=== PATIENT | female | born 1945 | race Caucasian/White ===

== ENCOUNTER → 2017-01-09 | Outpatient (CLI) | payer MEDICARE, OTHER ==
[~2017-01-09] MED LIST: ASPIRIN EC81 MG PO; DITROPAN-DPS5 MG PO; LASIX DPS20 MG PO; LEVAQUIN DPS500 MG PO; LORTAB LIQUID D15 ML PO; MOBIC15 MG PO; OMEPRAZOLE10 MG PO; SYNTHROID DPS0.1 MG PO; TYLENOL DPS325 MG PO; ZOCOR DPS20 MG PO
== END | disposition home or self-care (01) ==
LOC: RAD.S 01-08 15:00
PROC: 0W993ZZ Drainage of Right Pleural Cavity, Percutaneous Approach (ICD-10-PCS; principal; 2017-01-09)
DX: J90 Pleural effusion, not elsewhere classified (principal)

== ENCOUNTER 2017-01-21 15:15 | Inpatient (IN) | payer MEDICARE, OTHER ==
[~2017-01-21] VITALS: Ht 165.1 cm; Wt 89.8 kg
--- NOTE | ~2017-01-21 | ECH ---
Transthoracic Echocardiography Report (TTE) Demographics Patient Name DUNG SANCHEZ Date of Study 01/22/2017 Patient Number [id number] Visit Number [id number] Date of 1945 Room Number 532 Accession Number [id number] Gender Female Age 71 year(s) Referring Jessika Bonilla MD Sales Representative [facility] Frida Medrano Physician RDCS Physician Interpreting [place] Dusty Bennett MD Medical Technologist Prn Physician Supervising Ordering Physician Jessika Bonilla MD, MD/MLP Nurse Stress Customer Success Specialist Conclusions Summary Technically difficult exam. The estimated left ventricular ejection fraction is 60%. Diastolic assessment reveals Grade I diastolic dysfunction. The right atrium is mildly dilated. There is mild aortic regurgitation by color Doppler. Mild tricuspid regurgitation by color Doppler. There is mild pulmonary hypertension. The pulmonary pressure (RVSP) is 37 mmHg. Pleural effusion present. Procedure Type of Study TTE procedure:Echo Complete SF. Procedure Date Date: 01/22/2017 Start: 02:33 PM Technical Quality: Fair due to poor acoustical window. Indications:Pleural effusion. Appropriate Use Criteria: 8 Height: 65 inches Weight: 181 pounds BSA: 1.9 m Rhythm: Within normal limits HR: 78 bpm BP: 103/60 mmHg M-Mode/2D Measurements LV Diastolic Dimension: 4.78 cm LV Systolic Dimension: 3.71 cm LV Septum Diastolic: 0.76 cm LV PW Diastolic: 0.83 cm AO Root Dimension: 2.44 cm Cardiac Output: 5.08 l/min LA Dimension: 3.03 cm Cardiac Index: 2.67 l/min*m RV Diastolic Dimension: 1.91 cm LA volume index: 28 ml/m LVOT: 1.91 cm LVOT VTI: 22.75 cm RV Base: 4.1 cm LV Stroke volume: 65.15 ml RV Mid: 2.2 cm LV Stroke volume index: 34.29 ml/m TAPSE: 3 cm TDI-S': 12 cm/s Doppler Measurements AV Peak Velocity: 1.4 m/s MV Peak E-Wave: 0.81 m/s AV Peak Gradient: 7.84 mmHg MV Peak A-Wave: 0.92 m/s AV Mean Gradient: 3.81 mmHg MV E/A Ratio: 0.88 LVOT Peak Velocity: 1.04 m/s MV P1/2t: 73.7 msec AV Area (Continuity):2.35 cm AV P1/2t: 488.7 msec MV Deceleration Time: 302.5 msec TR Velocity:2.9 m/s MV Area (PHT): 2.98 cm TR Gradient:33.66 mmHg PV Peak Velocity: 0.91 m/s Estimated RAP:3 mmHg PV Peak Gradient: 3.32 mmHg Estimated RVSP: 37 mmHg Estimated PASP: 36.66 mmHg E' Septal Velocity: 0.08 m/s A' Septal Velocity: 0.12 m/s E' Lateral Velocity: 0.07 m/s A' Lateral Velocity: 0.11 m/s RA Area: 18.76 cm Findings Left Ventricle Normal left ventricle size and function. Diastolic assessment reveals Grade I diastolic dysfunction. Right Ventricle Normal right ventricle structure and function. Left Atrium Normal left atrial size. Right Atrium The right atrium is mildly dilated. Mitral Valve Normal mitral valve structure and function. Trivial mitral regurgitation by color Doppler. Aortic Valve The aortic valve is mildly sclerotic. There is mild aortic regurgitation by color Doppler. Tricuspid Valve Normal tricuspid valve structure and function. Mild tricuspid regurgitation by color Doppler. There is mild pulmonary hypertension. The pulmonary pressure (RVSP) is 37 mmHg. Pulmonic Valve The pulmonic valve is not well visualized. Pericardial Effusion No evidence of pericardial effusion. Miscellaneous Visualized portions of the aortic root and ascending aorta appear normal in size. Pleural Effusion Pleural effusion present. Signature
[2017-01-28] MEDS ORDERED: DITROPAN-DPS5 MG PO (16:07)
[2017-01-28] MEDS ORDERED: LEVAQUIN DPS500 MG PO (16:07)
[2017-01-28] MEDS ORDERED: MOBIC15 MG PO (16:07)
[2017-01-28] MEDS ORDERED: ZOCOR DPS20 MG PO (16:07)
[2017-01-28] MEDS ORDERED: OMEPRAZOLE10 MG PO (16:08)
[2017-01-28] MEDS ORDERED: SYNTHROID DPS0.1 MG PO (16:08)
[2017-01-28] MEDS ORDERED: LORTAB LIQUID D15 ML PO (16:08)
[2017-01-28] MEDS ORDERED: ASPIRIN EC81 MG PO (16:08)
[2017-01-28] MEDS ORDERED: LASIX DPS20 MG PO (16:08)
[2017-01-28] MEDS ORDERED: TYLENOL DPS325 MG PO (16:09)
--- NOTE | 2017-01-29 10:45 | OR ---
ADMIT: 01/21/2017 RM/LOC: 532 [facility] MR#: [id number] [address] [facility] [address] [place], [place] [address] DUNG SANCHEZ [address] [place] [address] Operative/Delivery Room Report SEX: F AGE: 71 : 1945 SURGERY DATE: 01/22/2017 SURGEON: Yaw De La Rosa MD PREOPERATIVE DIAGNOSIS: Recurrent right-sided pleural effusion. POSTOPERATIVE DIAGNOSIS: Right-sided pleural effusion and nodularity of the pleural surface, probable mesothelioma. PROCEDURE PERFORMED: 1. Right-sided thoracoscopy with evacuation of pleural effusion, 3 L of fluid was collected. 2. Pleural biopsies. 3. Pleurodesis with talc. CORRECTIONS LIEUTENANT: Girish Lopez MD ANESTHESIA: General endotracheal. ESTIMATED BLOOD LOSS: Less than 10 mL. DESCRIPTION OF PROCEDURE: After appropriate informed consent was obtained, the patient was brought to the operating room. General endotracheal anesthesia was induced. The patient was intubated with large endotracheal tube and then, a bronchial bri was placed under direct vision into the right mainstem to occlude the right side. With this accomplished, the patient was positioned with her right side up. All extremities were appropriately padded and she was held in place with a lozano bag. The anterior axillary line incision was created in approximately 7th intercostal space. Thoracoport was placed and immediately encountered some fluid in the chest. This was suctioned out, and a total of 3 L of fluid was collected and sent for cytology. The camera was then introduced. The lung was fairly collapsed and atelectatic from the compression from the fluid. But immediately upon placing the camera into the chest, we countered lot of nodularity of the pleural surface concerning for malignancy or mesothelioma. An additional 5 mm port was placed in the posterior aspect of the chest. With this port, I was able to evacuate any remaining pockets of fluid and then, I took multiple biopsies with the 5 mm biopsy forceps of the pleural surface as well as some of the debris on the lung, some of this was sent for frozen section and ultimately showed malignant tissue, probable mesothelioma. With these findings and when I had my biopsies adequately taken, I irrigated the chest out with couple liters of saline and this was all suctioned out. I then used a talc to ADMIT: 01/21/2017 RM/LOC: 532 [facility] MR#: [id number] [address] [address] KURT SANCHEZA Mykel [address] [place] [address] Operative/Delivery Room Report SEX: F AGE: 71 : 1945 pleurodese the chest and instilled this talc in through one my port sites, adequately coating the pleural surface. Two 32-Canadian chest tubes were then placed, one angled and one straight. The lung was reinflated nicely. The chest tubes were sewn in place with 2-0 silk suture and secured with dressings. The last 5 mm trocar site was closed with 4-0 Monocryl in the subcuticular layer. Sterile dressings were then applied. The chest tubes were placed to Pleur-evac suction. Dr. Lopez assisted in this entire procedure. His help was necessary for retraction and camera driving. Yaw De La Rosa MD/ ifrah JOB #: [id number] CC: Yaw De La Rosa, Attending Physician Chad Rosen, Family Physician MD Chad Beck MD
--- NOTE | 2017-01-29 10:45 | HP ---
ADMIT: 01/21/2017 RM/LOC: WAb15 [facility] MR#: [id number] [id number] [place], [place] [address] DUNG SANCHEZ [address] [place] [address] Pre-OP History and Physical SEX: F AGE: 71 : 1945 DATE OF SERVICE: 01/21/2017 CHIEF COMPLAINT: Dyspnea, right-sided chest pain, recurrent pleural effusion. HISTORY OF PRESENT ILLNESS: This is a pleasant 71-year-old female patient of Dr. Chad Rosen as well as Dr. Reyes Avalos, pulmonology service. The patient has a past history of tonsillar cancer, having been treated with radiation about 14 years ago. She has had some worsening dysphagia and recently a few months ago, had a PEG tube placed by Dr. Hu. She has been followed by Dr. Manzanares also and does not appear that she has any recurrent tonsillar cancer but nonetheless, she now has developed isolated right-sided pleural effusion, which has recurred very quickly over the last few weeks. She has actually had 2 separate thoracentesis done, one on 01/09 and the other one done on 01/17, and fluid is reaching very quickly. Neither of these showed malignant cells but there were some atypical cells in one of the studies. She had a CT of the chest on 01/17/2017, which still showed pretty large pleural effusion despite having the thoracentesis done. She now has had worsening shortness of breath again. She is quite dyspneic. She is having more pain in her right chest and into her back. No fevers or chills associated with this. She is coughing but really not bring up any phlegm or blood with this, so because of this, very quickly recurring pleural effusion and her past history of tonsillar cancer, she is here to discuss possible thoracoscopy biopsy and possible pleurodesis. She has never any surgery on her chest before, again just the two previous thoracentesis done by Interventional Radiology. Dr. Avalos saw her today and was concerned because of her shortness of breath and for the need for thoracoscopy, he sent her up here for evaluation. PAST MEDICAL HISTORY: Illnesses again include the past history of tonsillar cancer about 14 years ago, hypothyroidism, reflux, and hypercholesterolemia. CURRENT MEDICATIONS: 1. Synthroid 100 mcg daily. 2. Oxybutynin 5 mg twice a day. 3. Omeprazole 20 mg twice a day. 4. Simvastatin 20 mg at night. 5. Nitrofurantoin 100 mg as needed. 6. Baby aspirin daily. 7. Meloxicam 15 mg a day. 8. She just finished Levaquin 500 mg daily and she has also been on Lasix 20 mg a day. ALLERGIES: TO PENICILLIN. PREVIOUS SURGERIES: She has had a rotator cuff repair, colonoscopy, EGD with PEG tube placement, tubal ligation, and tonsillectomy. SOCIAL HISTORY: She denies tobacco use. Drinks alcohol occasionally. ADMIT: 01/21/2017 RM/LOC: W.15 [facility] MR#: [id number] [address] [address] DUNG SANCHEZ [address] [place] [address] Pre-OP History and Physical SEX: F AGE: 71 : 1945 FAMILY HISTORY: Significant for heart disease and diabetes. REVIEW OF SYSTEMS: Her 10-point review of systems is negative with the exception of her cough, her shortness of breath, pain in her back and her chest, also some hoarseness, difficulty swallowing and heartburn. 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 PHYSICAL EXAMINATION: GENERAL: She is alert. She is oriented. She is obviously a little bit uncomfortable with her shortness of breath. VITAL SIGNS: Stable. HEENT: She has really woody thick neck from her previous radiation. No obvious adenopathy. LUNGS: She has no breath sounds on the right side. She does have clear breath sounds on the left. HEART: Regular without murmurs. ABDOMEN: Soft, nontender, and nondistended. EXTREMITIES: Warm and pink with very mild edema. ASSESSMENT: 1. Recurrent dyspnea. 2. Recurrent right-sided pleural effusion. 3. History of tonsillar cancer 14 years ago. PLAN: I have recommended proceeding with admission to the hospital for IV fluids. CT scan of the chest. We will check some labs, and also consult Dr. Rosen. Then tomorrow, plan would be to proceed to the OR for right-sided thoracoscopy, probable biopsy, probable talc pleurodesis. I have gone through risks and benefits of this procedure in depth with the patient. She does understand all this and agrees to proceed. Yaw De La Rosa MD/ ifrah JOB #: [id number] CC: Yaw De La Rosa, Attending Physician Chad Rosen, Family Physician MD Chad Beck MD
--- NOTE | 2017-02-17 12:38 | DS ---
ADMIT: 01/21/2017 RM/LOC: 433 [facility] MR#: [id number] [address] [facility] [address] [place], [place] [address] DUNG SANCHEZ [address] [place] [address] Discharge Summary SEX: F AGE: 71 : 1945 ADMISSION DATE: 01/21/2017 DISCHARGE DATE: 01/27/2017 ADMITTING DIAGNOSIS: Recurrent right-sided pleural effusion. DISMISSAL DIAGNOSES: 1. 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 Concern for mesothelioma. 2. Right-sided pleural effusion. 3. Tonsillar cancer. 4. Hypothyroidism. 5. Reflux. 6. Hypercholesterolemia. PROCEDURES: 1. Right-sided thoracoscopy with evacuation of pleural effusion. 2. Pleural biopsies. 3. Pleurodesis with talc. HOSPITAL COURSE: After clinic the patient was admitted as an inpatient with routine med/surg with tele orders. On the next day, the patient underwent surgery and transferred to the floor without any complications. She was given a Dilaudid NUCLEAR PLANT EQUIPMENT OPERATOR for pain control, and Dr. Rosen was consulted to help in the medical management of this case. The patient does take tube feeds and so Nutrition was consulted for tube feed supplementation. Initially after surgery, the patient had some voiding issues and needed to be straight cathed. Otherwise, she recovered well while in the hospital. Her vitals began to normalize. She was tolerating an advanced diet and was weaned off her NUCLEAR PLANT EQUIPMENT OPERATOR and was tolerating oral pain medications. She did have a run of constipation that was treated with MiraLax and Colace, and she had good results. She eventually was able to discharge to home on 01/27/2017. Chest tube that was placed intraoperatively was pulled prior to dismissal, and the patient tolerated well. DISCHARGE INSTRUCTIONS: Follow up with Dr. De La Rosa in one week. Remove chest tube dressing tomorrow. Follow up with Dr. Rosen January 30 at 2 p.m. ADMIT: 01/21/2017 RM/LOC: 433 [facility] MR#: [id number] [address] [address] DUNG SANCHEZ [address] [place] [address] Discharge Summary SEX: F AGE: 71 : 1945 DISCHARGE MEDICATION LIST: 1. Levofloxacin 500 mg daily for 7 days. 2. Meloxicam 15 mg daily. 3. Oxybutynin 5 mg b.i.d. 4. Simvastatin 20 mg at bedtime. 5. Omeprazole 10 mg b.i.d. 6. Levothyroxine 100 mcg daily. 7. Furosemide 20 mg daily. 8. Aspirin 81 mg daily. 9. Lortab liquid 15-30 mL q.4-6 hours p.r.n. 10.Tylenol 650 mg q.4 hours p.r.n. JOANNE Whiteside / Yaw De La Rosa MD / ajf JOB #: [id number] CC: Yaw De La Rosa MD, Attending Physician Chad Rosen MD, Family Physician
--- NOTE | 2017-03-08 15:35 | CO ---
ADMIT: 01/21/2017 RM/LOC: 532 [facility] MR#: [id number] [address] [place], [place] [address] DUNG SANCHEZ [address] [place] [address] Consultation SEX: F AGE: 71 : 1945 DATE OF CONSULTATION: 01/22/2017 ATTENDING PHYSICIAN: Yaw De La Rosa CONSULTING PHYSICIAN: Chad Rosen MD REASON FOR CONSULT: Medical management. HISTORY OF PRESENT ILLNESS: This is a very pleasant 71-year-old white female, who is well known to me, who has had a several-week history of worsening shortness of breath, right-sided chest discomfort, ultimately was diagnosed with large right pleural effusion, underwent thoracentesis and unfortunately did not offer a whole lot of relief as far as her dyspnea or chest pain. The fluid quickly recollected. She then underwent another thoracentesis and still having difficulty with fluid recollection. She did have some atypical cells on cytology, but due to the significant quickness of the fluid recollection and ongoing symptoms, she is being admitted for a VATS procedure and possible pleurodesis per Dr. De La Rosa. She denies any recent fevers or chills. She had been on antibiotics once we saw the pleural effusion in hopes that this was a parapneumonic effusion given her history of aspiration events. Unfortunately, she has had little response to the antibiotic. She has had no fevers or chills. Not a significant amount of cough. She denies any substernal chest discomfort and no other concerns other than her shortness of breath. PAST MEDICAL HISTORY: Remarkable for tonsillar cancer, treated with resection and radiation 14 years ago. Hypothyroidism, gastroesophageal reflux disease, hyperlipidemia, ocular migraines. PAST SURGICAL HISTORY: Include tubal ligation, fibroid surgery, heel spur, right rotator cuff surgery. ALLERGIES: PENICILLIN. CURRENT MEDICATIONS: Include: 1. Levofloxacin 500 mg daily. 2. Oxybutynin 5 mg b.i.d. 3. Meloxicam 15 mg a day. 4. Simvastatin 20 mg at bedtime. 5. Omeprazole 10 mg b.i.d. 6. Levothyroxine 100 mcg daily. 7. Furosemide 20 mg daily. 8. Aspirin 81 mg daily. SOCIAL HISTORY: She is . Does not smoke or drink alcohol. FAMILY HISTORY: Father with PA, diabetes, hypertension, alcoholism. One brother with diabetes. Two brothers with MIs. One brother with hypertension. REVIEW OF SYSTEMS: GENERAL: No fevers or chills. ADMIT: 01/21/2017 RM/LOC: 532 [facility] MR#: [id number] [address] [address] [place] [address] Consultation SEX: F AGE: 71 : 1945 HEENT: No headaches, blurry vision, double vision. CARDIAC: She has had the right-sided chest discomfort, but no substernal pain concerning for ischemia. PULMONARY: As per HPI. GASTROINTESTINAL: No nausea, vomiting, or diarrhea. : No dysuria, urgency, or frequency. ENDOCRINE: No polyuria or polydipsia. PSYCH: No depression. INTEGUMENTARY: No new rashes. All others are negative. OBJECTIVE: VITAL SIGNS: Blood pressure is 134/67, pulse 88, respirations 20, temp 97.2. GENERAL: She is in no acute distress, but does talk in short sentences due to her shortness of breath. HEENT: Pupils are reactive. Conjunctivae are clear. Dry mucous membranes. NECK: Soft and supple. A lot of postop radiation changes to skin in the left side of her neck. LUNGS: With decreased breath sounds in the right lung field. HEART: Regular rate and rhythm. ABDOMEN: Soft. It is nontender. EXTREMITIES: No cyanosis, no clubbing. SKIN: No rashes other than the changes from radiation [place]. LAB AND X-RAY DATA: Shows a white count of 6800, hemoglobin 10.4, platelets 337,000. Sodium 135, potassium 4.4, chloride 97, CO2 of 27, BUN 19, creatinine 0.8, glucose 100, calcium 8.6. CT scan of the chest was read out as persistent very large right-sided pleural effusion with overlying compressive atelectasis. Extensive coronary artery calcifications. ASSESSMENT: 1. Recurrent right pleural effusion. 2. History of tonsillar cancer. ADMIT: 01/21/2017 RM/LOC: 532 [facility] MR#: [id number] [facility] [id number] DUNG SANCHEZ [address] [place] [address] Consultation SEX: F AGE: 71 : 1945 3. Hypothyroidism. 4. Hyperlipidemia. 5. Dysphagia with recurrent aspiration events. 6. Ocular migraines. PLAN: She has been hydrated over night. We will check an echocardiogram. I do not think it is impaired this is done before surgery. She is having no angina-type symptoms and would be an adequate surgical candidate at this point. We will check an echo just to make sure there is not any other cardiac issues which could be contributing to the recurrent pleural effusions. Continue her tube feeds and proceed with VATS and possible pleurodesis later this a.m. We will follow along in the perioperative period. Chad Rosen MD/ ifrah JOB #: [id number] CC: Yaw De La Rosa, Attending Physician Chad Rosen, Family Physician
== END 2017-01-27 11:57 | disposition home or self-care (01) | DRG 167 ==
LOC: WOR 15:15 → 5MS 15:15 → 4PCU 01-23 20:55
PROVIDERS: ADMIT Surgery
DX: C45.0 Mesothelioma of pleura (principal); J91.8 Pleural effusion in other conditions classified elsewhere; R50.9 Fever, unspecified; R13.10 Dysphagia, unspecified; E03.9 Hypothyroidism, unspecified; E78.00 Pure hypercholesterolemia, unspecified; K21.9 Gastro-esophageal reflux disease without esophagitis; K59.00 Constipation, unspecified; E78.5 Hyperlipidemia, unspecified; G43.909 Migraine, unspecified, not intractable, without status migrainosus; Z79.82 Long term (current) use of aspirin; Z82.49 Family history of ischemic heart disease and other diseases of the circulatory system; Z93.1 Gastrostomy status; Z85.89 Personal history of malignant neoplasm of other organs and systems

== ENCOUNTER 2017-02-06 06:42 | Day surgery (SDC) | payer MEDICARE, OTHER ==
[~2017-02-06] VITALS: Ht 165.1 cm; Wt 83.6 kg
== END 2017-02-06 09:30 | disposition home or self-care (01) ==
LOC: RAD.S 06:42 → EDSTATUS 08:00 → RAD.S 09:30
PROC: 0W9930Z Drainage of Right Pleural Cavity with Drainage Device, Percutaneous Approach (ICD-10-PCS; principal; 2017-02-06)
DX: C34.92 Malignant neoplasm of unspecified part of left bronchus or lung (principal); J90 Pleural effusion, not elsewhere classified; Z88.0 Allergy status to penicillin; Z79.899 Other long term (current) drug therapy

== ENCOUNTER 2017-03-03 10:10 | Day surgery (SDC) | payer MEDICARE, OTHER ==
[~2017-03-03] VITALS: Ht 160 cm; Wt 76.1 kg
--- NOTE | 2017-03-04 11:26 | OR ---
ADMIT: 03/03/2017 RM/LOC: [facility] MR#: [id number] [address] [place], [place] [address] DUNG SANCHEZ [address] [place] [address] Operative/Delivery Room Report SEX: F AGE: 71 : 1945 SURGERY DATE: 03/03/2017 SURGEON: Yaw De La Rosa MD PREOPERATIVE DIAGNOSIS: Mesothelioma, need for Jtptvb-E-Rhkw for chemotherapy. POSTOPERATIVE DIAGNOSIS: Mesothelioma, need for Atrkvw-I-Vtpy for chemotherapy. PROCEDURE PERFORMED: Right subclavian Iczxpx-H-Peac placement with fluoro. ANESTHESIA: Local MAC. ESTIMATED BLOOD LOSS: Less than 10 mL. DESCRIPTION OF PROCEDURE: After appropriate informed consent was obtained, the patient was brought to the operating room. IV sedation was provided by Anesthesia. Sterile drapes were applied including a sterile Ioban drape. I scanned her right neck with the ultrasound looking for a suitable jugular vein, but there really was no suitable vein in her neck to even access. I suspect this is from her previous tonsillar cancer surgery and radiation. So, instead I anesthetized with some 1% lidocaine with epinephrine in the skin and deep tissues of the right infraclavicular region. Accessed this vein on the first pass with an 18-gauge Cook needle on syringe. I had a good return of dark red, nonpulsatile blood. Guidewire passed easily and confirmed to be in the superior vena cava with fluoro. Additional local was injected into skin and deep tissues around this wire. Incision was created. This was carried deep with cautery. Subcutaneous pocket was created. The tubing was then tunneled from the reservoir site up to the puncture site in the right ADMIT: 03/03/2017 RM/LOC: [facility] MR#: [id number] 2620 [facility] [address] [place], [place] [address] DUNG SANCHEZ [address] [place] [address] Operative/Delivery Room Report SEX: F AGE: 71 : 1945 subclavian region. A split sheath dilator was then passed over the wire under fluoro guidance. The wire and dilator were removed. Tubing was then passed down through the split sheath, then the split sheath was removed. The tubing was then pulled back until tip resided in atriocaval junction. Tubing was cut at approximately 23 cm, attached to the PowerPort reservoir, and locked into place. The reservoir was then accessed, aspirated, and flushed easily. It was then flushed with heparinized saline. The port was sewn down the chest wall fascia using couple of 0 Ethibond sutures. The wound was then closed with 3-0 Vicryl in the dermal layer and running 4-0 Monocryl in the subcuticular layer. Sterile dressings were then applied. The patient tolerated the procedure well and was taken to the recovery room in stable condition. Yaw De La Rosa MD/ ifrah JOB #: [id number] CC: Yaw De La Rosa, Attending Physician Chad Rosen, Family Physician
== END 2017-03-03 14:13 | disposition home or self-care (01) ==
LOC: SSS 10:10 → EDSTATUS 15:31 → SSS 15:32
PROC: B516YZA Fluoroscopy of Right Subclavian Vein using Other Contrast, Guidance (ICD-10-PCS; principal; 2017-03-03)
PROC: 05H533Z Insertion of Infusion Device into Right Subclavian Vein, Percutaneous Approach (ICD-10-PCS; principal; 2017-03-03)
DX: C45.9 Mesothelioma, unspecified (principal); C09.9 Malignant neoplasm of tonsil, unspecified; J90 Pleural effusion, not elsewhere classified; K21.9 Gastro-esophageal reflux disease without esophagitis; Z88.0 Allergy status to penicillin; Z79.899 Other long term (current) drug therapy; Z79.891 Long term (current) use of opiate analgesic; Z79.82 Long term (current) use of aspirin

== ENCOUNTER → 2017-03-11 | Outpatient (CLI) | payer MEDICARE, OTHER | END | disposition home or self-care (01) | LOC: RAD.S 10:30 | DX: R06.02 Shortness of breath (principal); C34.80 Malignant neoplasm of overlapping sites of unspecified bronchus and lung; J90 Pleural effusion, not elsewhere classified; R91.8 Other nonspecific abnormal finding of lung field; I26.99 Other pulmonary embolism without acute cor pulmonale; R00.0 Tachycardia, unspecified ==

== ENCOUNTER 2017-03-18 21:25 | Inpatient (IN) | payer MEDICARE, OTHER ==
[~2017-03-18] VITALS: Ht 160 cm; Wt 83.2 kg
--- NOTE | ~2017-03-18 | CO ---
ADMIT: 03/18/2017 RM/LOC: 303 [facility] MR#: [id number] 2620 [facility] [address] [place], [place] [address] [place] [address] Consultation SEX: F AGE: 71 : 1945 DATE OF CONSULTATION: 03/21/2017 ATTENDING PHYSICIAN: Chad Rosen CONSULTING PHYSICIAN: Girish Lopez MD HISTORY: This is a 71-year-old female with metastatic mesothelioma, seen in consultation for dysfunctional PEG tube and consideration of jejunostomy tube for feeding. Dung was admitted with shortness of breath, delirium, diffuse abdominal pain, and body aches. She has been in the ICU since admission with those persistent symptoms. She is currently on chemotherapy regimen and last received that on 03/12 for the mesothelioma. She has a pleural catheter in the right chest for drainage of chronic effusion there. 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 She had a PEG tube placed by Dr. Chong in September. There has been some difficulty flushing that tube over the last several days and so tube feedings were held two days ago. Upper GI was then performed, which showed contrast sitting in the stomach, but not moving beyond that. CT scan of the abdomen was also performed since admission and on review of that, there is evidence that is worrisome for carcinomatosis of the abdomen. There was not evidence of gastric outlet obstruction or at least complete obstruction on that study. She does have pain at the exit site of the PEG tube, but it does not seem out of the normal expected pain from a tube exiting the cutaneous tissue. PAST MEDICAL HISTORY: 1. Recent sepsis secondary to infected pleural effusion. 2. Mesothelioma, unresponsive to chemotherapy thus far. 3. Severe protein-calorie malnutrition. 4. Chronic anemia. 5. Hypoxia with respiratory failure. PAST SURGICAL HISTORY: Right-sided VATS with pleural catheter placement, PEG tube placement, tubal ligation, tonsillectomy, rotator cuff repair, and colonoscopy. SOCIAL HISTORY: She has not smoked. She does drink occasional alcohol. FAMILY HISTORY: Significant for heart disease and diabetes. REVIEW OF SYSTEMS: A 10-point review of systems was performed. She does describe severe difficulty with breathing and shortness of breath, pain in her body, essentially diffusely with her back, chest, and abdomen. She does describe also weakness. She had fever at admission. She has had intolerance or difficulty with tube feedings. Remainder of the 10-point review of systems is negative for recent change. PHYSICAL EXAMINATION: GENERAL: Dung is alert, is oriented to person and place currently. She does however appear significantly short of breath with ADMIT: 03/18/2017 RM/LOC: 303 [facility] MR#: [id number] [address] [place] [id number] [place] [address] Consultation SEX: F AGE: 71 : 1945 the head of her bed at 30 degrees. VITAL SIGNS: Her vital signs are currently stable. HEENT: Sclerae are grossly anicteric. NECK: Without lymphadenopathy. LUNGS: Diminished particularly at the right lung quevedo. Left lung is coarse as well. HEART: Regular rate and rhythm. ABDOMEN: Soft. PEG tube site is clean and dry. There is no peritoneal sign. No discrete mass. EXTREMITIES: Diffuse lower extremity swelling. 3+ in nature. Calves are soft without tenderness. There is no focal neurologic deficit. Her cranial nerves are intact. IMPRESSION: 1. Mesothelioma. 2. Gastric outlet obstruction versus gastroparesis. 3. Possible carcinomatosis. 4. Severe malnutrition and deconditioning. PLAN: I do feel our next step is to evaluate with esophagogastroduodenoscopy for any gastric outlet obstructive findings. There was no evidence of that in September and CT scan does not clearly show that on this admission yesterday. If there is, it would be worrisome that this is related to malignancy progression in which case, performing a jejunostomy tube would be extremely difficult and would likely require anesthetic such that she would not tolerate in her deconditioned state. If there is no evidence of gastric outlet obstruction, it may be that it is also gastroparesis related to carcinomatosis and her underlying medical issues. I discussed this in detail with she and her daughter. They understand and agree to proceed with EGD initially. Girish Lopez MD/ ifrah JOB #: [id number] CC: Chad Rosen, Attending Physician Chad Rosen, Family Physician
--- NOTE | 2017-03-20 01:26 | ER ---
ADMIT: 03/18/2017 RM/LOC: 303 [facility] MR#: [id number] [address] [facility] [address] [place], [place] [address] [address]UNG SANCHEZ [address] [place] [address] Emergency Room Report SEX: F AGE: 71 : 1945 DATE: 03/18/2017 TIME: 2125 hours. Please refer to my T-sheet for complete H and P. HISTORY OF PRESENT ILLNESS: Briefly, the patient is a 71-year-old, who has an unfortunate history to have mesothelioma. She has been on chemotherapy. Her last dose was a week ago. She has been coughing, short of breath. She does have a pleural drain on her right lung for her recurrent effusion. They have been draining it. They were not able to drain it today. She has been weak, no energy, confused, and a high fever. PHYSICAL EXAMINATION: VITAL SIGNS: Her blood pressure is 113/87, pulse 126, respirations 24, temp 102.1, sat 94% on 2 L. GENERAL: She is pale and mild distress. HEENT: Conjunctivae are very pale. LUNGS: Decreased breath sounds on the right. Moving minimal air. HEART: Tachy, regular. ABDOMEN: Soft. EXTREMITIES: Trace edema. NEUROLOGIC: Alert and oriented, nonfocal except she is, at times, slightly altered. EMERGENCY ROOM COURSE: Sepsis protocol was obtained. Her CBC was normal except hemoglobin 7.7, platelets 119. Chemistries normal except glucose 139, albumin 1.9. Lactate was 3.5. Cardiac enzymes were negative. Coags were normal. UA was normal. Blood cultures x2 were sent. Chest x-ray revealed a large right pleural effusion. EKG was sinus tach, rate 118. No hyperacute changes. She did get the whole fluid, IV antibiotics. She has a pen allergy. We are going to use meropenem and vancomycin. We gave her some Tylenol 1 g IV because she has a PEG tube. I talked to Dr. Florian and Dr. Lorenzana. Dr. Florian will relay the message to Dr. Lorenzana. I talked to Dr. Abdias Winston. They will all be involved in her care. She will be admitted to ADMIT: 03/18/2017 RM/LOC: 303 [facility] MR#: [id number] [address] [address] DUNG SANCHEZ [address] [place] [address] Emergency Room Report SEX: F AGE: 71 : 1945 the ICU. ASSESSMENT: 1. Right-sided pneumonia enveloped in a pleural effusion. 2. Acute sepsis. 3. Anemia. Her hemoglobin has gone down more recently. 4. Oncology patient. 5. Critical care time of 70 minutes. Again, she will be admitted to the ICU. PLAN: Admit to the ICU. I have talked both to Dr. Winston and Dr. Florian. Rico Mckeon MD/ ifrah JOB #: [id number] CC: Chad Rosen MD, Attending Physician Chad Rosen MD, Family Physician
--- NOTE | 2017-03-24 07:54 | OR ---
ADMIT: 03/18/2017 RM/LOC: 303 [facility] MR#: [id number] 2620 [facility] [address] [place], [place] [address] DUNG SANCHEZ [address] [place] [address] Operative/Delivery Room Report SEX: F AGE: 71 : 1945 SURGERY DATE: 03/21/2017 SURGEON: Girish Lopez MD PREOPERATIVE DIAGNOSIS: Gastric outlet obstruction. POSTOPERATIVE DIAGNOSIS: Gastroparesis. PROCEDURE: Esophagogastroduodenoscopy. ANESTHESIA: IV general. DESCRIPTION OF PROCEDURE: The patient was taken to the Endoscopy suite and placed left side down on her hospital cart. A bite-block was placed and IV sedation was established. The upper endoscope was advanced through the oropharynx into the esophagus without difficulty. The scope was pushed under visualization of the stomach. Air was used to insufflate the stomach. There was some residual food in the stomach. The balloon of the gastrostomy tube was in appropriate position and without apparent complication. The scope was advanced to the distal stomach. The pylorus was patent without obstruction. This did allow traversing into the duodenum. The scope was withdrawn. The liquid portion suctioned. On retroflexion of the scope, the proximal stomach was otherwise unremarkable. The scope was withdrawn as air was suctioned. The patient tolerated the procedure in critical condition and transferred to recovery. PLAN: We will attempt resuming tube feedings via bolus. If there is difficulty in pushing through the tube, we will try [employer] to digest any possible sedimentation in the tubing itself if there is generalized bowel dysfunction as a result of carcinomatosis that presents challenge in utilizing the GI tract for nutritional supplementation. There were no obvious obstructive findings currently. Girish Lopez MD/ inesl JOB #: [id number] CC: Chad Rosen, Attending Physician Chad Rosen, Family Physician
--- NOTE | 2017-03-24 11:32 | CO ---
ADMIT: 03/18/2017 RM/LOC: 303 [facility] MR#: [id number] [address] [facility] [address] [place], [place] [address] [place] [address] Consultation SEX: F AGE: 71 : 1945 DATE OF CONSULTATION: 03/19/2017 ATTENDING PHYSICIAN: Chad Rosen CONSULTING PHYSICIAN: Tyler Vaughn MD LOCATION OF SERVICE: [facility] [place]. REASON FOR CONSULTATION: Dr. Winston has requested our consultation for admitting counselor, coordination of goals, and options of care. HISTORY OF PRESENT ILLNESS: This is a 71-year-old elderly female, who follows with Dr. Winston for known mesothelioma receiving chemotherapy, last given on 03/12/2017. She also has a chronic right-sided pleural effusion with a PleurX catheter in place which the drains daily at home. She presented to our Emergency Department on 03/18/2017 with increasing shortness of breath and a fever of 102.1. also reported that the patient was having diffuse body aches and confusion. On admit, Ms. Sanchez was unable to answer questions or follow commands. She was admitted into the ICU for further evaluation and treatment. Her lactic acid was found to be 3.5, creatinine 0.3, albumin 1.9. Blood cultures on 03/18/2017, have been negative so far. Urine culture from 03/18/2017, has been negative so far. She is requiring supplemental oxygen at this time at 3 L/minute per nasal cannula. She has been started on vancomycin and Merrem as she has a penicillin allergy. She does wear a fentanyl patch at 25 mcg q.72 hours which was removed in the Emergency Department. She continues with p.r.n. Snyder 7.5 q.6 hours p.r.n. pain per her PEG tube. Dr. Winston has documented that unfortunately her cancer has not responded to the chemotherapy thus far and has spoken with the family concerning code status options. Dr. Winston has requested our consultation to further explore goals and options of care as well as code status options. Current functional status reflects a palliative performance score of 20. She is bed bound, unable to do any work, needing total cares. Intake is per her PEG tube and she is alert, however, she is confused with conversation. She is oriented to herself. Prior to admission, her functional status reflects a palliative performance score of around 60 per spouse's report. Her ambulation was reduced and she was unable to do hobbies or housework due to her significant cancer disease. Self care, she needed assistance from her spouse at times. Her intake has been reduced. She does have a PEG tube and her conscious level has been full. PAST MEDICAL HISTORY: 1. Mesothelioma, follows with Dr. Winston, currently on chemotherapy, last given on 03/12/2017. 2. Chronic right-sided pleural effusion with PleurX catheter in place. 3. 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 4. GERD. ADMIT: 03/18/2017 RM/LOC: 303 [facility] MR#: [id number] [address] [place] [phone] [place] [address] Consultation SEX: F AGE: 71 : 1945 5. Hypothyroidism. 6. Ocular migraine. 7. Hyperlipidemia. 8. Dysphagia status post PEG tube placement. PAST SURGICAL HISTORY: Tubal ligation, fibroid removal, right rotator cuff surgery, heel spur, right chest port placement, PEG tube placement. ADVANCED DIRECTIVE AND CODE STATUS: She is a full code status. She does not have a healthcare [id number] within our medical record. Her next of kin is her spouse, Matthew Sanchez at [phone]. SOCIAL HISTORY: She lives here in [place] with her , Matthew. She is . She does have adult children involved in her care. She is Jewish. She does not use tobacco, alcohol, or illicit drugs. FAMILY HISTORY: Positive for diabetes, cardiovascular disease, hypertension, and alcoholism. CURRENT MEDICATIONS: Include: 1. Synthroid. 2. Zocor. 3. Vancomycin. 4. DuoNeb. 5. Ditropan. 6. Folvite. 7. Ativan. 8. Compazine. 9. Merrem. 10.Hydrocodone 7.5. 11.Tylenol. ALLERGIES: PENICILLIN. REVIEW OF SYSTEMS: A 10-point review of systems was attempted, however, due to patient's cognition, I was unable to obtain. PHYSICAL EXAMINATION: CONSTITUTIONAL: Weight is 180 pounds. Please see medical record for height and BMI. GENERAL STATUS: This is an elderly female, in no acute distress. Alert and oriented to self, however, confused with conversation. She appears calm and comfortable at this time. VITAL SIGNS and CODE STATUS: She is a full code status with temperature of 99.9, heart rate 108, respiratory rate 24, blood pressure 117/61, she is on 3 L of oxygen per nasal cannula oxygenating at 96%. HEENT: Head is normocephalic, atraumatic. She is not wearing glasses. Pupils are 3 mm, PERRLA. Hearing is diminished bilaterally. Oral mucosa is dry. Dentition is worn. Anicteric sclerae. Conjunctivae pale. ADMIT: 03/18/2017 RM/LOC: 303 [facility] MR#: [id number] [address] [address] GEORGES SANCHEZTHELMA [place] [address] [place] [address] Consultation SEX: F AGE: 71 : 1945 NECK: No lymphadenopathy. Trachea is midline. Supple. No JVD. RESPIRATORY: Respirations are regular without distress. Lung sounds are diminished bilaterally. I do not auscultate any crackles, wheezes, or rhonchi at this time. CARDIOVASCULAR: Rate and rhythm are regular. I do not auscultate rubs, murmurs, clicks, or gallops. GASTROINTESTINAL: Abdomen is nontender and nondistended. Positive bowel sounds in all 4 quadrants. She does have a PEG tube. Her abdomen is soft. EXTREMITIES: Upper and lower extremities are free of cyanosis or clubbing or edema. INTEGUMENTARY: Skin temperature is warm. Skin is intact. MUSCULOSKELETAL: Free of joint deformities. Does have generalized weakness. NEUROLOGICAL: She is alert and oriented to herself, however, confused to place and time and confused with conversation. PSYCHIATRIC: Confused. Affect is flat. Insight is impaired. DIAGNOSTIC DATA: Laboratory work reveals a sodium of 137, potassium 3.7, chloride 98, creatinine 0.3, and albumin 1.9. Troponin less than 0.015. WBC is 5.4, hemoglobin 7.4, hematocrit 24.1, and platelets 102. Lactic acid 2.0. On admit, her lactic acid on March 18, 2017 was 3.5. Blood cultures drawn on March 18 have been negative so far. Urine culture on March 18 has been negative so far. RADIOLOGY: Reports have been reviewed. Please see EMR for details. IMPRESSION AND PLAN: 1. Physical debility. 2. Dysphagia with past aspiration, history of PEG tube placement. 3. Delirium. 4. Severe protein-calorie malnutrition with albumin of 1.9. 5. Mesothelioma on current chemotherapy, follows with Dr. Winston. Last chemotherapy was given on 03/12/2017. 6. 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 7. Chronic large right pleural effusion with PleurX catheter in place. Further evaluation of this pleural fluid is pending at this time. 8. Sepsis. 9. Hypothyroidism. 10.Chronic pain. Spouse reports that she has been using fentanyl patch 25 mcg topically q.72 hours starting 9 days ago along with p.r.n. hydrocodone 7.5. Currently her pain appears controlled with p.r.n. Snyder as the fentanyl patch was removed in the Emergency Department on 03/18/2017. 11.Palliative care. 12.Full code status. Symptoms appear currently controlled. She is confused and unable to participate fully in this consultation. Spouse, Matthew is next of kin and is at the bedside and reviewed Mrs. Sanchez's overall health status as well as ADMIT: 03/18/2017 RM/LOC: 303 [facility] MR#: [id number] [address] [address] DUNG SANCHEZ [address] [place] [address] Consultation SEX: F AGE: 71 : 1945 goals and options of care. Spouse is aware of his 's fragile health state and has spoken with Dr. Winston concerning her cancer not responding to chemotherapy thus far and her overall critical condition. We reviewed code status options, full code versus do not resuscitate/do not intubate status with benefits versus burdens, he verbalizes understanding, becomes tearful and states that he would like to spend some time talking with his children today concerning these options and I have encouraged him to do so. We will follow up with him tomorrow concerning his thoughts, questions, or concerns. Matthew does report that his #1 goal for his at this time is to continue with aggressive care and hope for stabilization and to continue the full code status in place at this time. Much support given at this difficult time. I will continue the Snyder p.r.n. as ordered for pain management and continue to monitor her pain levels as she may need a long-acting opioid in future. I have discussed this consultation with nursing staff. My partner Linh Ayala APRN will follow up tomorrow. Mrs. Sanchez was seen in collaboration with Dr. Tyler Vaughn who agrees with the above assessment, discussion, and plan. I would like to thank Dr. Winston for the invitation to participate in Mrs. Sanchez's hospital course. Total consultation time was from 0949 hours to 1045 hours on 03/19/2017 by the palliative Medicine WET PROCESS MILLER HEAD ASSISTANT. Greater than 50% of this time was spent at the bedside in admitting counselor, coordination of care. Racheal Arellano APRN / Tyler Vaughn MD / irfah JOB #: [id number] CC: Chad Rosen, Attending Physician Chad Rosen, Family Physician
--- NOTE | 2017-03-26 08:15 | CO ---
ADMIT: 03/18/2017 RM/LOC: 303 [facility] MR#: [id number] 2620 [facility] [address] [place], [place] [address] DUNG SANCHEZ [address] [place] [address] Consultation SEX: F AGE: 71 : 1945 DATE OF CONSULTATION: 03/19/2017 ATTENDING PHYSICIAN: Chad Rosen CONSULTING PHYSICIAN: Abdias Winston MD REASON FOR CONSULTATION: Mesothelioma. HISTORY OF PRESENT ILLNESS: The patient is a 71-year-old female, who I am following in the clinic for her high risk of mesothelioma that is unresectable. She has been treated now with one cycle of carbo and Alimta with poor tolerance and therefore her second cycle was given with Alimta alone. She has had a very difficult time in the last couple of weeks. We have tried very hard to keep her out of the hospital with several days of hydration and aggressive supportive care spent in our clinic. She was admitted last night with shortness of breath and confusion. She is currently in the ICU with fairly significant respiratory distress. She is fairly confused and not able to give me a great history. I obtained most of the history from her . He has been very concerned about her health. He states that she has become much weaker over the last couple of weeks and especially last couple of days. She has not had any significant fevers. She reports to me that her pain is under good control at this time. She is mainly concerned about her shortness of breath. She had her pleural fluid last drained about 3 days ago. She expresses to me and her confirms that they want everything done at this point including full code status. PAST MEDICAL HISTORY: 1. Mesothelioma. 2. Malnutrition. 3. PleurX catheter placed and PEG tube placement. ALLERGIES: REVIEWED IN THE CHART. MEDICATIONS: Reviewed in the chart. SOCIAL HISTORY: The patient is . She has a supportive family. She is a nonsmoker. FAMILY HISTORY: She is not aware of any hereditary recurrent malignancies in the family. REVIEW OF SYSTEMS: See HPI. She is a bit confused, but still able to provide yes and no answers accurately to my questions. Please see HPI for further details. PHYSICAL EXAMINATION: VITAL SIGNS: Temperature 100, pulse 113, respirations 30, blood pressure 89/59. GENERAL: The patient is in obvious distress mainly from her shortness of breath and difficulty getting good deep breaths. She has somewhat of a ADMIT: 03/18/2017 RM/LOC: 303 [facility] MR#: [id number] [address] [address] DUNG SANCHEZ [address] [place] [address] Consultation SEX: F AGE: 71 : 1945 panicked look on her face. She is slightly confused, but can provide me some history. HEENT: Mucous membranes are moist. No oral lesions are seen. Extraocular muscles were intact. Pupils are reactive and symmetrical. NECK: Without adenopathy or JVD. HEART: Tachycardic without murmur. LUNGS: Coarse bilaterally with decreased breath sounds throughout. ABDOMEN: Soft, mildly distended, and nontender with positive bowel sounds. EXTREMITIES: She has 1+ peripheral edema. No rashes, lesions, or adenopathy is appreciated. LABORATORY DATA: White count is 5.4, hemoglobin 7.4, platelets 102. Creatinine is 0.3. The rest of her labs are reviewed in the chart. IMPRESSION: 1. Malignant mesothelioma with thus far refractoriness to chemotherapy. 2. Respiratory distress from pleural effusion and likely pneumonia. 3. Severe malnutrition. RECOMMENDATIONS: I had a long discussion with her and her family today. We discussed at length her goals of care and prognosis and treatment options. She is obviously critically ill at this point. She needs pleural fluid removed, and I will send her for some appropriate infection studies. I am concerned about the possibility that she may progress in need of intubation. I talked with him a long time about this possibility and just to confirm that she really wants to be a full code status. I urged them to strongly consider DNR/DNI status given that she still has remaining a very difficult cancer to treat that thus far has not improved. They will give it some thought over the next day or so. We will gladly have supportive care team assist in her decision making as well. We will follow along and monitor her blood counts closely. Obviously, her chemotherapy is on hold for now. I appreciate this consultation. Abdias Winston MD/ ifrah JOB #: [id number] CC: Chad Rosen, Attending Physician Chad Rosen, Family Physician
--- NOTE | 2017-04-01 06:25 | HP ---
ADMIT: 03/18/2017 RM/LOC: [facility] MR#: [id number] [facility] [address], [place] [address] [place] [address] History and Physical SEX: F AGE: 71 : 1945 DATE OF SERVICE: CHIEF COMPLAINT: Shortness of breath and delirium. HISTORY OF PRESENT ILLNESS: The patient presented to the emergency room with a 24-hour history of delirium with increased shortness of breath and fever. reports that she first began to become confused last night but looks significantly more ill today having diffuse body aches, fever, and shortness of breath. Temperature upon arrival to the emergency room was 102.1 Fahrenheit. The patient was oriented to person, unable to answer review of system questions seemingly appropriately, but was otherwise confused and repetitive with her speech. She reports that she hurts all over including diffuse abdominal pain that her reports is chronic. They deny any recent change in cough or sputum production. They deny any nausea, vomiting, or diarrhea. They deny any known skin ulcers. The patient is currently receiving chemotherapy for mesothelioma and was last given chemo on 03/12/2017. She also has a chronic right-sided pleural effusion which her drains for palliation through a PleurX catheter daily but has not yet drained her effusion today. PAST MEDICAL HISTORY: 1. Mesothelioma, on chemotherapy. 2. Chronic right-sided pleural effusion with PleurX catheter in place. 3. 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 4. Gastroesophageal reflux disease. 5. Hypothyroidism. 6. Ocular migraines. 7. Hyperlipidemia. PAST SURGICAL HISTORY: Include tubal ligation, fibroid removal, right rotator cuff surgery, heel spur, PEG tube placement, and port placement. MEDICATIONS: 1. Levothyroxine 100 mcg p.o. daily. 2. Omeprazole 10 mL twice daily per J-tube. 3. Simvastatin 20 mg one tab nightly per J-tube. 4. Folic acid 1 mg per J-tube daily. 5. Oxybutynin 5 mg b.i.d. per J-tube. 6. Dexamethasone with chemo. 7. Fentanyl 25 mcg patch every 72 hours. 8. Radha's Magic Mouthwash 10 mL swish and swallow p.r.n. before meals and at bedtime. 9. Nitrofurantoin 100 mg per J-tube as needed. 10.Prochlorperazine 10 mg per J-tube every 4-6 hours as needed for nausea. 11.Hydrocodone/acetaminophen 7.5/325 mg one tab every 6 hours as needed for pain per J-tube. 12.Lorazepam 1 mg p.r.n. every 8 hours per J-tube. 13.Xarelto one tab daily per J-tube. ADMIT: 03/18/2017 RM/LOC: [address] [facility] MR#: [id number] [address] [place] [address] History and Physical SEX: F AGE: 71 : 1945 14.MiraLax as needed per J-tube. 15.Mucinex as needed per J-tube. ALLERGIES: PENICILLIN. FAMILY HISTORY: The patient has a family history of diabetes, cardiovascular disease, hypertension, and alcoholism. SOCIAL HISTORY: The patient is and currently living at home with her . Her daughter is also at the bedside. She does not use tobacco or alcohol. REVIEW OF SYSTEMS: A 10-point review of systems was completed and negative except as noted per the HPI. OBJECTIVE: VITAL SIGNS: 112/87, 130, 20, 96% on 2 L per nasal cannula, 102.1 Fahrenheit. GENERAL: The patient is awake, oriented only to self. HEENT: Head is normocephalic and atraumatic. Pupils are equal, round, and reactive to light. Extraocular muscles are intact. Mucous membranes are dry. NECK: Supple. Trachea is midline. Radiation changes. Radiation scarring present on the left side of her neck. HEART: Tachycardic with regular rhythm. No appreciable murmurs. LUNGS: Have diffuse rhonchi on the left and decreased breath sounds on the right. Normal work of breathing on 2 L per nasal cannula. ABDOMEN: Soft with mild tenderness to palpation diffusely. J-tube is in place. Surrounding skin appears healthy. EXTREMITIES: Without cyanosis, clubbing, or edema. SKIN: With radiation camargo to the neck as previously described. No redness or tenderness around port or J-tube. No ulcerations appreciated. PSYCH: The patient is acutely delirious but is not agitated. NEURO: Grossly intact. LABORATORY AND X-RAY DATA: WBC 5.9, HGB 7.7, PLT 119, creatinine 0.5, albumin 1.9, lactic acid 3.5, procalcitonin 1.26. Chest x-ray with large right-sided pleural effusion similar to previous exam. EKG is sinus tachycardia at 118 beats per minute. No appreciable ST or T-wave changes. ASSESSMENT: 1. Sepsis likely secondary to infected pleural effusion. 2. Mesothelioma, on chemotherapy. 3. Chronic large right-sided pleural effusion with PleurX catheter in place. 4. Severe protein-calorie malnutrition. 5. Anemia. 6. Hypoxic respiratory failure. 7. Delirium likely secondary to sepsis. 8. Hypothyroidism. 9. Dysphagia with recurrent aspiration events, receiving all intake per PEG ADMIT: 03/18/2017 RM/LOC: [address] [facility] MR#: [id number] [address] [address] [address] [place] [address] History and Physical SEX: F AGE: 71 : 1945 tube. PLAN: The patient was given a 30 mL/kg bolus of fluids in the ER and vancomycin and meropenem were started for broad-spectrum antibiotic coverage as the patient has penicillin allergy. She is currently requiring 2 L per nasal cannula to maintain her saturations. We will continue broad-spectrum antibiotic coverage and an IV fluid support and oxygen support as needed. We will continue home medications including pain regimen with fentanyl and hydrocodone/acetaminophen. We will continue patient's Xarelto as her blood thinner. Discussion with the family was conducted about code status and the patient and her family agree that they would like to be aggressive at this time even if that were to include intubation with mechanical ventilation or CPR. Discussed that this would always be readdressed as condition progresses. Sulma Florian MD Resident / Estiven Lorenzana MD / ifrah JOB #: [id number] CC: Chad Rosen, Attending Physician Chad Rosen, Family Physician
--- NOTE | 2017-05-05 10:20 | DS ---
ADMIT: 03/18/2017 RM/LOC: [address] [facility] MR#: [id number] [facility] [address] [place], [place] [address] [address] [place] [id number] General Discharge Summary SEX: F AGE: 71 : 1945 ADMISSION DATE: 03/18/2017 DISCHARGE DATE: 03/24/2017 ADMISSION DIAGNOSIS: Sepsis secondary to pneumonia. SECONDARY DIAGNOSES: 1. Mesothelioma on current chemotherapy. 2. Chronic right-sided pleural effusion with Pleurx catheter in place. 3. Severe protein-calorie malnutrition. 4. Anemia of chronic disease. 5. Hypoxic respiratory failure. 6. Delirium. 7. Hypothyroidism. 8. Dysphagia with history of aspiration events. PEG tube in place. 9. History of tonsillar cancer, status post resection and radiation. 10.Chronic pain. 11.Thrombocytopenia. 12.Hypokalemia. CONSULTATIONS: Oncology, Supportive Care, and General Surgery. PROCEDURE: EGD on 03/21/2017. HISTORY OF PRESENT ILLNESS: The patient presented to the emergency room with 24 hours of worsening shortness of breath, fever, and delirium. Her labs at admission include white blood cell count of 5.9, hemoglobin 7.7, and platelets 119. Albumin of 1.9, lactic acid of 3.5, and procalcitonin 1.26. She was given a 30 mL/kg fluid bolus in the emergency room and started on broad- spectrum antibiotics including vancomycin and meropenem due to her penicillin allergy. At admission, the patient was requiring 2 L per nasal cannula of oxygen to maintain saturations. To summarize her hospital course despite aggressive cares, the patient declined throughout the hospitalization. Fluid from her chronic pleural effusion was collected and sent for studies and was no growth including blood cultures and urine cultures as well. She continued to have a worsening of her shortness of breath as well as her generalized ADMIT: 03/18/2017 RM/LOC: [address] [facility] MR#: [id number] [facility] [address] [place], [place] [address] [address] [place] [address] General Discharge Summary SEX: F AGE: 71 : 1945 weakness. She developed an intolerance of her tube feeds, and CT scan was completed without pyloric obstruction. An upper GI failed to progress past her pylorus and so General Surgery was consulted for EGD. The patient underwent EGD on 03/21 and was found to just have severe gastroparesis, not gastric outlet obstruction. Since she continues to decline, her family altered wishes. Their previous wish is to have aggressive cares, but appropriately changed her code status to DNR/DNI on 03/21 and then consulted hospice on 03/23 when she developed a severe shortness of breath and had likely impending respiratory failure. On 03/24/2017, she was made comfort measures only and was only given the medications that will provide palliative benefit, and her chronic pleural effusion would be drained for palliation. The patient on 03/24/2017, with time of of 1518 hours. Sulma Florian MD Resident / Chad Rosen MD / modl JOB #: [id number] CC: Chad Rosen MD, Attending Physician Chad Rosen MD, Family Physician
== END 2017-03-24 15:18 | disposition expired | DRG 871 ==
LOC: ER 21:25 → 3ICU 23:30
PROVIDERS: ADMIT Family Medicine
PROC: 3E0G76Z Introduction of Nutritional Substance into Upper GI, Via Natural or Artificial Opening (ICD-10-PCS; 2017-03-20)
PROC: 30233N1 Transfusion of Nonautologous Red Blood Cells into Peripheral Vein, Percutaneous Approach (ICD-10-PCS; 2017-03-20)
PROC: 0DJ08ZZ Inspection of Upper Intestinal Tract, Via Natural or Artificial Opening Endoscopic (ICD-10-PCS; principal; 2017-03-21)
PROC: 3E0436Z Introduction of Nutritional Substance into Central Vein, Percutaneous Approach (ICD-10-PCS; 2017-03-21)
DX: A41.9 Sepsis, unspecified organism (principal); E43 Unspecified severe protein-calorie malnutrition; J96.91 Respiratory failure, unspecified with hypoxia; G93.40 Encephalopathy, unspecified; J90 Pleural effusion, not elsewhere classified; J18.9 Pneumonia, unspecified organism; R13.10 Dysphagia, unspecified; D63.8 Anemia in other chronic diseases classified elsewhere; C45.9 Mesothelioma, unspecified; D69.6 Thrombocytopenia, unspecified; Z51.5 Encounter for palliative care; E87.6 Hypokalemia; K31.84 Gastroparesis; G89.29 Other chronic pain; K21.9 Gastro-esophageal reflux disease without esophagitis; E03.9 Hypothyroidism, unspecified; G43.909 Migraine, unspecified, not intractable, without status migrainosus; E78.5 Hyperlipidemia, unspecified; Z85.89 Personal history of malignant neoplasm of other organs and systems; Z93.1 Gastrostomy status; Z66 Do not resuscitate